=== PATIENT | male | born 1980 | race African-American/Black ===

== ENCOUNTER 2016-09-15 06:00 | Emergency (ER) | payer SELFPAY ==
[~2016-09-15] VITALS: Ht 162.6 cm; Wt 81.6 kg
[2016-09-15 06:15] VITALS: BP 140/85
[2016-09-15] MEDS ORDERED: IBUPROFEN 800 MG TAB PO ONE (06:45)
== END 2016-09-15 08:29 | disposition home or self-care (01) ==
LOC: ER 06:03
DX: M51.37 Other intervertebral disc degeneration, lumbosacral region (principal); M47.817 Spondylosis without myelopathy or radiculopathy, lumbosacral region
CPT/HCPCS: 72100